=== PATIENT | male | born 1975 | race Hispanic/Latino ===

== ENCOUNTER → 2018-04-29 | Day surgery (SDC) | payer BC ==
[~2018-04-29] MED LIST: BACITRACIN ZINC 15 GM OINT ONE; BUPIVACAINE HCL 0.5% INJ 30 ML VIAL INJ ONE; CEFAZOLIN SOD 1 GM VIAL ONE; DEXAMETHASONE SOD PHOS INJ 4 MG/ML VIAL ONE; FENTANYL CITRATE/PF 100MCG/2 ML INJ ONE; KETOROLAC TROMETHAMINE 30 MG/ML VIAL ONE; LIDOCAINE HCL 2% LOCAL INJ 5 ML SDV VIAL INJ ONE; MIDAZOLAM HCL 2 MG/2 ML VIAL ONE; ONDANSETRON HCL INJ 2 MG/ML VIAL ONE; PROPOFOL IV EMULSION 10 MG/ML 20 ML VIAL ONE; SEVOFLURANE INHAL SOLN 250 ML PEN BTL ONE
[2018-04-29 13:50] VITALS: BP 120/75
--- NOTE | 2018-04-29 14:59 | Operative Report ---
DATE OF PROCEDURE: April 29, 2018 DOPE SPRAYER: Miles Marrero PA-C The patient was brought to the operating room for induction of anesthesia. Throughout this case, my PA's assistance was necessary for retraction of soft tissue and positioning of the extremity. This allows for efficient and technically successful execution of the operation and is considered medically necessary. PREOPERATIVE DIAGNOSIS: Left distal biceps tendon rupture. POSTOPERATIVE DIAGNOSIS: Left distal biceps tendon rupture. PROCEDURE: Left arm distal biceps tendon repair. INDICATIONS: The patient is a 42-year-old gentleman who is active in lifting weights. He sustained an injury to the left elbow where he felt a pop. MRI shows a near complete rupture of the distal biceps tendon. The options have been discussed. He would like to have this surgically repaired. The risks and benefits have been explained. He states he understands and wishes to proceed. DESCRIPTION OF PROCEDURE: The patient was brought to the operating room and placed under general anesthetic. His left upper extremity was prepped and draped in a sterile manner. A preoperative time out was performed. The extremity was exsanguinated, and a proximal tourniquet was inflated to 250 mmHg. An incision was made just distal to the flexion crease of the left elbow. Blunt dissection was carried down to expose the biceps tendon. There was about 10% of the tendon that remained attached to the radial tuberosity. This was released. The tendon was retracted from the wound. This was debrided back to healthy tissue. An Arthrex distal biceps repair system was used. The FiberWire stitch was passed through the tendon in a Gabriela-type weave. The distal tendon was debrided so that it would pass through an 8 mm sizer. The radial tuberosity was carefully exposed. The remnants of the tendinous attachment were debrided with a Marinelli elevator. A area relief pilot hole was drilled. This was over-reamed with an 8 mm reamer through the near cortex. The FiberWire stitches were passed through an EndoButton. This was passed through the far cortex. The elbow was brought up into flexion, and the distal biceps insertion was buried in bone. An arthroscopic suture tie was used to tie the biceps tendon. One of the stitches was repassed through the tendon with a free needle. The stitch was then passed through a bioabsorbable 8 mm interference screw. This was buried into the hole. Excellent fixation was obtained. Final knots were placed into the FiberWire stitches. The elbow was put through flexion and extension. There was excellent fixation noted. The wound was thoroughly irrigated. The skin was closed with subcuticular Vicryl and nylon stitches. A sterile bandage was applied. The patient was placed into a posterior splint. He was extubated and transported to the recovery room in stable condition. There was no blood loss, and all needle and sponge counts were correct. Job#: [id number]
== END | disposition home or self-care (01) ==
LOC: OR 09:13
PROVIDERS: ATTEND Specialist
DX: S46.212A Strain of muscle, fascia and tendon of other parts of biceps, left arm, initial encounter (principal); X58.XXXA Exposure to other specified factors, initial encounter; Y93.67 Activity, basketball; Y99.8 Other external cause status; Z01.810 Encounter for preprocedural cardiovascular examination; Z68.31 Body mass index [BMI] 31.0-31.9, adult
CPT/HCPCS: 24342; 93005; C1713 ×2; J0690; J1100; J1885; J2001; J2250; J2405